=== PATIENT | male | born 1980 | race Caucasian/White ===

== ENCOUNTER → 2017-01-25 | Day surgery (SDC) | payer OTHER ==
[~2017-01-25] MED LIST: BUSPAR5 M1 PO; IBUPROFEN800 MG PO; TYLENOL325 M1 PO
--- NOTE | ~2017-01-25 | OR ---
Unit #: [id number] #: [id number] Patient: LOPEZ JOHN [id number] [address] [place], [place] [address] [id number] MR#: [id number] NAME: LOPEZ JOHN ROOM: Date of Procedure: 01/25/2017 Admission Date: 01/25/2017 Surgeon: Rd Granger M.D. : 1980 Attending Physician: Rd Granger M.D. Referring Physician: Rd Granger M.D. Primary Care Physician: Lopez Rivas M.D. OPERATIVE REPORT PREOPERATIVE DIAGNOSIS Incarcerated incisional hernia complex. POSTOPERATIVE DIAGNOSIS Incarcerated incisional hernia complex. PROCEDURE PERFORMED Laparoscopic ventral hernia repair of incarcerated incisional hernia with 8 x [address] Ventralight [address]ACK GREAS[address]. Byrne. ANESTHESIA General endotracheal anesthesia. ESTIMATED BLOOD LOSS Minimal. IV FLUIDS 900 crystalloid. COMPLICATIONS None. INDICATIONS FOR PROCEDURE The patient is a 36-year-old gentleman, who has had multiple operations who presents with a complex hernia multifaceted in the midline. He presents for laparoscopic repair. DESCRIPTION OF PROCEDURE The patient was taken to the operating theater and placed in supine position. General anesthesia was induced. The abdomen was prepped and draped. A 10-mm Visiport was then placed in the left upper quadrant without difficulty. The abdomen was insufflated to 15 mmHg with CO2. I then placed right upper quadrant with 5 mm, left lower quadrant 5 mm, and right lower quadrant 5 mm. General inspection of the abdomen revealed a complex hernia with multiple defects. These were taken down with combination of sharp and blunt dissection. I then placed an 8 x 10 Ventralight mesh into position. This was held in place with single-stranded Vicryl sutures and delivered transcutaneous. This covered the defect by at least 5 cm in all circumference. This was secured with a Unit #: [id number] #: [id number] Patient: LOPEZ JOHN stapling device in 2 circumferential rings of hany. Hemostasis was adequate. I removed the ports under direct vision and cut the sutures at the skin level. The wounds were closed with 4-0 Vicryl. The patient tolerated the procedure well and sent to the recovery room in good condition. Dictated by... Susy Villafana TD: 01/26/2017 08:32 JOB #: [id number] OPERATIVE REPORT Page [address] MD PROCEDURE OPERATIVE NOTE
== END | disposition home or self-care (01) ==
LOC: CSUR 05:34
DX: K43.0 Incisional hernia with obstruction, without gangrene (principal); I10 Essential (primary) hypertension; F41.1 Generalized anxiety disorder; R73.9 Hyperglycemia, unspecified; E66.9 Obesity, unspecified; G47.30 Sleep apnea, unspecified; Z87.19 Personal history of other diseases of the digestive system; Z90.49 Acquired absence of other specified parts of digestive tract; Z88.8 Allergy status to other drugs, medicaments and biological substances; Z79.899 Other long term (current) drug therapy; Z83.2 Family history of diseases of the blood and blood-forming organs and certain disorders involving the immune mechanism; Z80.3 Family history of malignant neoplasm of breast; Z81.8 Family history of other mental and behavioral disorders; Z82.49 Family history of ischemic heart disease and other diseases of the circulatory system; Z83.3 Family history of diabetes mellitus; Z81.1 Family history of alcohol abuse and dependence; Z86.14 Personal history of Methicillin resistant Staphylococcus aureus infection
CPT/HCPCS: C1781; J0330; J0690; J1100; J1644; J1885; J2250; J2405; J2710; J3010; J3370